=== PATIENT | male | born 1960 | race Caucasian/White ===

== ENCOUNTER → 2023-09-20 12:27 | Outpatient (REF) | payer OTHER, SELFPAY | LOC: HWRAD 12:27 | PROVIDERS: ATTENDING PHYSICIAN Surgery; FAMILY PHYSICIAN Physician Assistant Medical | DX: R31.9 Hematuria, unspecified (principal) | CPT/HCPCS: 74178; Q9967 ==

== ENCOUNTER → 2023-10-09 13:03 | Outpatient (REF) | payer OTHER, SELFPAY | LOC: RAD 13:03 | PROVIDERS: ATTENDING PHYSICIAN Surgery; FAMILY PHYSICIAN Physician Assistant Medical | DX: N20.0 Calculus of kidney (principal) | CPT/HCPCS: 74018 ==

== ENCOUNTER → 2023-11-01 17:06 | Outpatient (REF) | payer OTHER, SELFPAY | LOC: CLAB 17:06 | PROVIDERS: ATTENDING PHYSICIAN Surgery | DX: N20.0 Calculus of kidney (principal) | CPT/HCPCS: 82365 ==

== ENCOUNTER → 2024-05-08 12:37 | Outpatient (REF) | payer OTHER, SELFPAY | LOC: HWRAD 12:37 | PROVIDERS: ATTENDING PHYSICIAN Surgery; FAMILY PHYSICIAN Physician Assistant Medical | DX: K40.90 Unilateral inguinal hernia, without obstruction or gangrene, not specified as recurrent (principal); N20.0 Calculus of kidney | CPT/HCPCS: 76775; 76882 ==

== ENCOUNTER 2024-08-26 06:18 | Day surgery (SDC) | payer OTHER, SELFPAY ==
[2024-08-26] VITALS (10 sets, daily range): BP systolic 119–148; BP diastolic 76–86; BMI 24.8
--- NOTE | 2024-08-26 07:04 | W.SUR.PREOP ---
Pre-Operative Surgical Note
-
I have examined this patient prior to the performance of the scheduled procedure.
The patient's condition is unchanged from the time of the current History and
Physical and the patient is able to undergo the scheduled procedure.
--- NOTE | 2024-08-26 07:04 | HP.FOC2 ---
Focused History & Physical
Chief Complaint
HPI:
Chief Complaint: This is a 63-year-old male with a symptomatic right inguinal hernia. Will plan for a laparoscopic right inguinal hernia repair with mesh.
HPI / Indication for Planned Procedure: This is a 63-year-old male with a symptomatic right inguinal hernia. Will plan for a laparoscopic right inguinal hernia repair with mesh.
Relevant Past Medical History: Negative
Relevant Social History: Negative
Relevant Family History: Negative
Relevant Past Surgical History: Negative
Review of Systems
Review of Pertinent Systems: All Systems Negative
Medication
See Medication form for detailed medications: Yes
Medication List (including Herbals & OTC):
aspirin 81 mg tablet 81 mg PO DAILY 08/21/24
ezetimibe 10 mg tablet 5 mg PO DAILY 08/21/24
rosuvastatin 20 mg tablet 20 mg PO DAILY 08/21/24
Medications Reviewed: Yes
Allergies and Reactions
Patient has Allergies: Yes
Noted Allergies and Reactions:
Allergy/AdvReac Type Severity Reaction Status Date / Time
No Known Allergies Allergy Verified 04/11/16 09:30
Pertinent Physical Exam
All Other Systems: Negative
Head/Neck: Normal
Diagnosis / Assessment
This is a 63-year-old male with a symptomatic right inguinal hernia.
Plan / Procedure
Will plan for a laparoscopic right inguinal hernia repair with mesh.
Anesthesia/Sedation to be done by Anesthesia Provider: Yes
[2024-08-26] MEDS: NORMOSOL-R/PLASMALYTE-A 1000 IV (07:25)
[2024-08-26] MEDS: TYLENOL 1000 MG PO (07:33)
--- NOTE | 2024-08-26 10:03 | W.IMMPOSTOP ---
Surgical Immed Post Op Note
-
Primary Surgeon: Homar Matthew MD
Assisting Surgeon: None
Pre-op Diagnosis: Right inguinal hernia
Post-op Diagnosis: Same
Procedure Performed: Laparoscopic right inguinal hernia repair with mesh
Anesthesia Type: General
Specimen / Cultures: None
Estimated Blood Loss: 11 cc
Complications: None
Operative Findings: Small indirect inguinal hernia. Critical view of the MPO achieved. The space was reinforced with a large right mid weight uncoated polypropylene Bard 3D max mesh. Surgiflo used, small vessel in the space of Retzius clipped.
No tacks used.
--- NOTE | 2024-08-26 10:05 | OR.RPT ---
Operative Report
Operative Report
Patient Name: Alek Lawton
: 1960
Date of Operation: 08/26/2024
Preoperative Diagnosis: Reducible Inguinal hernia, right
Postoperative Diagnosis: Same
Procedure(s):
Laparoscopic Inguinal Hernia Repair, right (TEP approach)
Surgeon(s):
Dr. Matthew
Manager Pool(s):
SPENCER Ferreira
Anesthesia: General
Estimated Blood Loss: 1 cc
Urine Output: None
Drains/Lines/Implants: Large 3D Max Bard mid weight mesh
Specimens: None
Indication for surgery: The patient has a history of groin pain and noted on exam to have a right inguinal Hernia(s). Following review of therapeutic options they elected to undergo a minimally invasive repair.
Operative Findings: Small indirect inguinal hernia. Critical view of the MPO achieved. The space was reinforced with a large right mid weight uncoated polypropylene Bard 3D max mesh. Surgiflo used, small vessel in the space of Retzius clipped.
No tacks used.
Details of the operation:
After inducing general anesthesia and endotracheal intubation, the patient was prepped and draped in the supine position with both arms tucked. After infiltration with 0.25% Marcaine, a right periumbilical incision was made. Dissection was carried
down to the anterior sheath which was incised and the rectus muscle retracted laterally. An origin balloon was then inserted in through the posterior portion of the rectus into the preperitoneal space. This was insufflated under direct vision and
blunt dissection was therefore achieved in the preperitoneal space. The balloon was then removed and a 12mm Balloon trocar was placed. Two 5-mm ports were also placed in the midline below the camera port. Blunt dissection was used to dissect the
myopectineal orifice with care not to injure the epigastric vessels, gonadals or spermatic cord. Blunt dissection was used to identify the direct, indirect, and femoral spaces.
Right side:
The cord was inspected and an indirect hernia sac was noted and reduced.
There was no cord lipoma.
There was no weakness in the direct space floor.
There was no femoral herniation.
Given the patient's aspirin there was some mild diffuse oozing noted during her blunt dissection but this all stopped. Surgiflo was applied along the inferior border of the flap and in the space of Retzius. There was a small vessel there that was
clipped with a 5 mm clip grants director.
A large 3D max mesh was then placed into position and positioned into the appropriate area to cover all 3 defects. No tacks were used.
The area was then completely infiltrated with 10 cc of Marcaine without epinephrine (0.25%). The insufflation was slowly decreased and the mesh was assured to be in proper position with desufflation. Some intra-abdominal pneumoperitoneum was
evacuated via a small rent made in the posterior rectus sheath, which was then closed with 0 PDS. The Susy trocar site was also closed with 0 PDS suture. The skin sites were all then closed with running subcuticular 4-0 Monocryl suture followed
by dermabond. Inspection of the scrotum revealed both testes to be in position. The patient returned to the recovery room in stable condition. Sponge and instrument counts were correct. No specimen sent to pathology
I was the attending physician and performed the procedure with assistance of the PA above. The assistance of SEPNCER Ferreira was required due to the complexity of the procedure. During the procedure Chrissy assisted with port placement, tissue
retraction, and closure of the wound. I was present for all portions of the case, excluding skin closure.
Homar Matthew MD
== END 2024-08-26 12:10 | disposition home or self-care (01) ==
LOC: SDS 06:18
PROVIDERS: ATTENDING PHYSICIAN Surgery
DX: K40.90 Unilateral inguinal hernia, without obstruction or gangrene, not specified as recurrent (principal)
CPT/HCPCS: 49650; C1781

== ENCOUNTER → 2024-11-19 15:07 | Outpatient (REF) | payer OTHER, SELFPAY | LOC: RAD 15:07 | PROVIDERS: ATTENDING PHYSICIAN Surgery; FAMILY PHYSICIAN Physician Assistant Medical | DX: N20.0 Calculus of kidney (principal); K46.9 Unspecified abdominal hernia without obstruction or gangrene | CPT/HCPCS: 76775; 76882 ==